=== PATIENT | female | born 1950 | race Two or more races ===

== ENCOUNTER 2023-05-29 08:10 | Outpatient (CLI) | payer OTHER | END 2023-05-29 08:17 | disposition home or self-care (01) | LOC: SONOGRAMA 08:10 | PROVIDERS: ATTEND Pathology Anatomic Pathology & Clinical Pathology | DX: D34 Benign neoplasm of thyroid gland (principal); E07.89 Other specified disorders of thyroid; E04.1 Nontoxic single thyroid nodule ==